=== PATIENT | female | born 2000 | race African-American/Black ===

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

== ENCOUNTER 2022-06-03 20:15 | Emergency (ER) | payer OTHER ==
[2022-06-03] MEDS ORDERED: Ibuprofen 200 MG TAB ONE (21:29)
== END 2022-06-03 21:45 | disposition home or self-care (01) ==
LOC: ERS 20:15
DX: H60.92 Unspecified otitis externa, left ear (principal); H91.92 Unspecified hearing loss, left ear
CPT/HCPCS: 99282